=== PATIENT | female | born 1990 | race Caucasian/White ===

== ENCOUNTER 2020-08-24 16:45 | Emergency (ER) | payer OTHER ==
[2020-08-24 16:49] VITALS: BP 145/83; PULSE 103; RESP 20; TEMP 98.5
[2020-08-24] MEDS ORDERED: DIPH,PERTUS(ACELL)TETVAC-LF 0.5 ML VIAL IM ONE (16:51)
[2020-08-24] MEDS ORDERED: LIDOCAINE 1% INJ 10MG/ML (20 ML MDV) SQ ONE (16:53)
--- NOTE | 2020-08-24 17:23 | XR ---
EXAMINATION TYPE: XR hand limited RT DATE OF EXAM: 08/24/2020 COMPARISON: NONE HISTORY: Laceration TECHNIQUE: 2 views FINDINGS: I see no fracture nor dislocation. Joint spaces are normal. There are no pathologic calcifi cations. There is no sign of a foreign body. There is minimal soft tissue deformity at the skin surfa ce lateral to the second metacarpal head. IMPRESSION: Small laceration deformity. No foreign body. No fracture.
--- NOTE | 2020-08-24 17:57 | ED ---
Wound/Laceration HPI - General Chief Complaint: Wound/Laceration Stated Complaint: R hand Injury Time Seen by Provider: 08/24/20 16:51 Source: patient Mode of arrival: ambulatory Limitations: no limitations - History of Present Illness Initial Comments: 29yo female presenting for right hand laceration. Patient states she cut between her thumb and index finger in the webspace when she was using a knife to cut something in the kitchen. Patient denies any other areas of injury she states bleeding is controlled she is unsure of her last tetanus. Patient denies any decreased range of motion or sensation deficits of the thumb index finger or any other remaining digits of the right hand. Patient appears well nontoxic in acute distress on arrival denies - Related Data Home Medications Medication Instructions Recorded Confirmed Acetaminophen Tab [Tylenol Tab] 1,000 mg PO Q6HR PRN 08/24/20 08/24/20 Allergies Allergy/AdvReac Type Severity Reaction Status Date / Time No Known Allergies Allergy Verified 08/24/20 18:06 Review of Systems ROS Statement: Those systems with pertinent positive or pertinent negative responses have been documented in the HPI. ROS Other: All systems not noted in ROS Statement are negative. Past Medical History Past Medical History: No Reported History History of Any Multi-Drug Resistant Organisms: None Reported Past Surgical History: No Surgical Hx Reported Past Psychological History: Anxiety Smoking Status: Never smoker Past Alcohol Use History: None Reported Past Drug Use History: None Reported General Exam - General Exam Comments Initial Comments: General: The patient is awake and alert, in no distress Eye: +3 mm pupils are equal, round and reactive to light, extra-ocular movements are intact. No nystagmus. There is normal conjunctiva bilaterally. No signs of icterus. Ears, nose, mouth and throat: There are moist mucous membranes and no oral lesions. Musculoskeletal: Normal ROM, no tenderness. Strength 5/5 at the MCP DIP and PIP joints (IP respectively) of all 5 digits of the right hand. Sensation intact. Radial pulses equal bilaterally 2+. Capillary refill< 3 seconds. Neurological: A&O x 3. CN II-XII intact grossly, There are no obvious motor or sensory deficits. Coordination appears grossly intact. Speech is normal. Skin: Skin is warm and dry and no rashes. 2cm laceration in web space between 1 & second digit, no identified foreign body of her exposure of underlying structure. Psychiatric: Cooperative, appropriate mood & affect, normal judgment. Limitations: no limitations Course Vital Signs 08/24/20 16:47 Temperature 98.5 F Pulse Rate 103 H Respiratory 20 Rate Blood Pressure 145/83 O2 Sat by Pulse 99 Oximetry Procedures - Laceration Laceration #1 Consent Obtained: verbal consent Indication: laceration Site: hand Size (cm): 2 Description: linear Depth: simple, single layer Anesthetic Used: lidocaine 1% Anesthesia Technique: local infiltration Amount (mls): 1 Pre-repair: wound explored, irrigated extensively, deep structures intact Type of Sutures: nylon Size of Sutures: 5-0 Number of Sutures: 5 Technique: simple, interrupted Patient Tolerated Procedure: well, no complications Medical Decision Making - Medical Decision Making 29yo female presenting for cc of right hand laceration. Neurovascularly intact evidence of tendon injury on physical examination or x-ray. laceration repaired after irrigation/cleansing. xr (-). tdap updated. pt tolerated proedure well discussed with laceration care/suture care and return parameters. Attending Dr. Rausch Disposition Clinical Impression: Laceration of right hand Disposition: HOME SELF-CARE Condition: Good Instructions (If sedation given, give patient instructions): Care For Your Stitches (ED), Laceration (ED) Additional Instructions: Please use medication as discussed. Please follow-up for suture removal in 7-10 days. Please return to emergency room if the symptoms increase or worsen or for any other concerns. Is patient prescribed a controlled substance at d/c from ED?: No Referrals: Reji Moser DO [Primary Care Provider] - 1-2 days Time of Disposition: 17:57
== END 2020-08-24 18:05 | disposition home or self-care (01) ==
LOC: EC 16:45
DX: S61.411A Laceration without foreign body of right hand, initial encounter (principal); Z23 Encounter for immunization; W26.0XXA Contact with knife, initial encounter; Y93.89 Activity, other specified; Y92.000 Kitchen of unspecified non-institutional (private) residence as the place of occurrence of the external cause
CPT/HCPCS: 73120; 90471; 99283; 12001; 90715; J2001

== ENCOUNTER 2021-12-21 06:25 | Day surgery (SDC) | payer OTHER ==
[2021-12-17 14:04] VITALS: BMI 30.7
[~2021-12-21 06:25] MED LIST: LACTATED RINGERS 1,000 ML IV SCH; LIDOCAINE 1% (10MG/ML) FOR IV START INTRADERMA PRN
[2021-12-21 06:55] VITALS: RESP 16; TEMP 98.7
[2021-12-21] MEDS ORDERED: PROPOFOL 10 MG/ML 20 ML VIAL IV ONE (07:27)
[2021-12-21] MEDS ORDERED: MIDAZOLAM 2 MG/2 ML VIAL ONE (07:27)
[2021-12-21] MEDS ORDERED: fentaNYL (PF) 50 MCG/ML 2 ML AMP ONE (07:27)
[2021-12-21] MEDS ORDERED: LIDOCAINE 2% INJ 20 MG/ML (2 ML VIAL) ONE (07:27)
--- NOTE | 2021-12-21 07:52 | P.PCN ---
Date of Procedure: 12/21/21 Procedure(s) Performed: Brief history: Patient is a pleasant 31-year-old white female scheduled for an elective upper endoscopy as well as colonoscopy as a part of evaluation of abdominal pain/intermittent rectal bleeding and positive serology for celiac disease. Procedure performed: Esophagogastroduodenoscopy with biopsy Colonoscopy Preoperative diagnosis: [place] pain/positive serology for celiac disease Intermittent rectal bleeding Anesthesia: [facility] [place] Procedure: After informed consent was obtained from the patient was brought into the endoscopy unit and IV sedation was administered by anesthesia under continuous monitoring. Initially upper endoscopy was done. The Olympus GF 160 video endoscope was inserted inserted into the mouth and esophagus intubated without any difficulty and was gradually advanced into the stomach and duodenum and carefully examined. The bulb and second part of the duodenum appeared normal. Antral biopsies were done from the duodenum to rule out celiac disease. The scope was then withdrawn into the stomach adequately insufflated with air and upon careful examination the antrum had mild gastritis and biopsies were done from this area. The body, cardia and fundus appeared normal. The scope was then withdrawn into the esophagus. The GE junction was located at 40 cm to the incisors. It appeared regular with no erythema erosions or ulcerations. Rest of the esophagus appeared normal. Patient tolerated the procedure well. At this time the patient continued to remain sedation. Initial digital rectal examination was normal. Olympus CF 160 video colonoscope was then inserted into the rectum and gradually advanced to the cecum without any difficulty. Careful examination was performed as the scope was gradually being withdrawn. The prep was excellent. The cecum, ascending colon, transverse colon, descending colon, sigmoid colon and rectum appeared normal. Retroflexion was performed in the rectum and monitor hemorrhoids were noted. Patient tolerated the procedure well. Impression: 1. Upper Endoscopy revealed mild antral gastritis and normal-appearing duodenum status post multiple biopsies to rule out celiac 2. Colonoscopy revealed small internal hemorrhoids but no evidence of colitis or colorectal neoplasia Recommendations: Findings of this examination were discussed with the patient as well as her family. She was advised to follow with the biopsy results. In the meantime advised to be a high-fiber diet and fiber supplements a regular basis.
[2021-12-21 08:15] VITALS: BP 124/89; PULSE 74
== END 2021-12-21 08:30 | disposition home or self-care (01) ==
LOC: ORWHC2ENDO 06:25
PROVIDERS: ATTEND Internal Medicine Gastroenterology
DX: K90.0 Celiac disease (principal); K29.50 Unspecified chronic gastritis without bleeding; K64.8 Other hemorrhoids; J45.909 Unspecified asthma, uncomplicated; F41.9 Anxiety disorder, unspecified
CPT/HCPCS: 81025; 88305; 45378; 43239; J2250; J3010; J2704; J2001

== ENCOUNTER → 2023-06-22 | Outpatient (CLI) | payer OTHER ==
--- NOTE | 2023-06-22 14:19 | MM ---
Reason for Exam: Clinical finding. Baseline mammogram. Indicated Problems: Lump or thickening of the right side for 2 Week(s). Patient History: Menarche at age 11. First Full-Term at age 20. Maternal aunt had breast cancer. Last menstrual period: 06/03/2023 Prior Study Comparison: Patient's first Mammogram. Tissue Density: The breast tissue is heterogeneously dense. This may lower the sensitivity of mammography. Findings: Analyzed By CAD. No evidence for mass or distortion. No suspicious calcifications seen. Clinical correlation. Ultrasound right breast. Overall Assessment: Incomplete: need additional imaging evaluation, BI-RAD 0 Management: Diagnostic Breast Ultrasound of the right breast. . Results were given to the patient verbally at the time of exam. Patient should continue monthly self-breast exams. A clinical breast exam by your physician is recommended on an annual basis. This exam should not preclude additional follow-up of suspicious palpable abnormalities. Note on Kat scores and lifetime risk: 1. A Kat score greater than 3% is considered moderate risk. If this is the case, consider specialist referral to assess eligibility for a risk reducing agent. 2. If overall lifetime risk for the development of breast cancer is 20% or higher, the patient may qualify for future screening with alternating mammogram and breast MRI. Electronically signed and approved by: Cristi Green M.D. Radiologis
--- NOTE | 2023-06-22 14:30 | USB ---
Reason for Exam: Clinical finding. Patient History: Menarche at age 11. First Full-Term at age 20. Maternal aunt had breast cancer. Technique: Method: Targeted. Findings: The upper outer quadrant of the right breast, the axilla of the right breast and the retroareolar of the right breast were scanned. Simple cyst noted right 9:00 position 2 cm from the nipple measuring 1.7 x 1.1 cm. No solid masses seen. Managed clinically. Overall Assessment: Benign, BI-RAD 2 Management: Screening Mammogram of both breasts at age 39. A clinical breast exam by your physician is recommended on an annual basis and results should be correlated with mammographic findings. This exam should not preclude additional follow-up of suspicious palpable abnormalities. Results were given to the patient verbally at the time of exam. Electronically signed and approved by: Cristi Green M.D. Radiologis
== END | disposition home or self-care (01) ==
LOC: RADMAMWWP 13:43
PROVIDERS: ATTEND Family Medicine
DX: R92.333 Mammographic heterogeneous density, bilateral breasts (principal); N63.10 Unspecified lump in the right breast, unspecified quadrant; Z80.3 Family history of malignant neoplasm of breast
CPT/HCPCS: 77062; 77066

== ENCOUNTER 2024-03-28 08:29 | Emergency (ER) | payer BC, OTHER ==
[2024-03-28 08:34] VITALS: TEMP 98.3
[2024-03-28] MEDS: KETOROLAC 15 MG/ML 1 ML VIAL IVP STA (09:32)
[2024-03-28] MEDS: LORazepam 1 MG TAB PO STA (09:32)
[2024-03-28] MEDS: SODIUM CHLORIDE 0.9% 1,000 ML IV STA (09:33)
[2024-03-28 09:34] LABS: Basophils % (A) 0 %; Eosinophils # (A) 0.1 k/uL (0-0.7); Eosinophils % (A) 2 %; HCT 41.6 % (34.0-46.0); HGB 14.2 gm/dL (11.4-16.0); Lymphocytes # (A) 1.3 k/uL (1.0-4.8); Lymphocytes % (A) 18 %; MCHC 34.1 g/dL (31.0-37.0); MCV 90.9 fL (80.0-100.0); Mean Platelet Volume 10.6; Monocytes # (A) 0.4 k/uL (0-1.0); Monocytes % (A) 6 %; Neutrophils # (A) 5.5 k/uL (1.3-7.7); Neutrophils % (A) 73 %; Platelet Count 182 k/uL (150-450); RBC 4.58 m/uL (3.80-5.40); RDW 12.6 % (11.5-15.5); WBC 7.5 k/uL (3.8-10.6)
[2024-03-28 09:50] LABS: INR 0.9 (<1.2); Partial Thromboplastin Time 26.8 sec (22.0-30.0); Prothrombin Time 9.9 sec (10.0-12.5)
--- NOTE | 2024-03-28 09:53 | XR ---
EXAMINATION TYPE: XR chest 2V DATE OF EXAM: 03/28/2024 COMPARISON: None INDICATION: Chest pain TECHNIQUE: Frontal and lateral views of the chest are obtained. FINDINGS: The heart size is normal. The pulmonary vasculature is normal. The lungs are clear. IMPRESSION: 1. No acute pulmonary process. [facility] Friedman, , 03/28/2024 9:51 AM
[2024-03-28 09:59] LABS: NT-Pro-B-Type Natriuretic Pept <20 pg/mL
--- NOTE | 2024-03-28 10:07 | ED ---
General Adult HPI - General Chief complaint: Chest Pain Stated complaint: chest pain,htn Time Seen by Provider: 03/28/24 08:40 Source: patient, RN notes reviewed, old records reviewed Mode of arrival: ambulatory Limitations: no limitations - History of Present Illness Initial comments: Patient is a 33-year-old female presents emergency department complaining of chest tightness and pain. Has also noticed elevated blood pressure. Remote history of asthma. Is also feeling anxious. Has been under more stress lately due to family issues. No history of early cardiac disease in herself or family members. No focal tenderness. No nausea, vomiting, diaphoresis. No radiation of the discomfort. No coughing. Occasionally shortness of breath. No lower extremity edema. No recent long distance travel. No history of blood clots. Presents for further evaluation at this time. Symptoms have been ongoing for 3 days. - Related Data Previous Rx's Medication Instructions Recorded LORazepam [Ativan] 0.5 mg PO DAILY PRN 3 Days #3 tab 03/28/24 Allergies Allergy/AdvReac Type Severity Reaction Status Date / Time cat dander Allergy Dyspnea Verified 03/28/24 10:17 dog dander Allergy Dyspnea Verified 03/28/24 10:17 pollen extracts Allergy Dyspnea Verified 03/28/24 10:17 tree and shrub pollen Allergy Dyspnea Verified 03/28/24 10:17 dust Allergy Dyspnea Uncoded 03/28/24 10:17 Review of Systems ROS Statement: Those systems with pertinent positive or pertinent negative responses have been documented in the HPI. ROS Other: All systems not noted in ROS Statement are negative. Past Medical History Past Medical History: Asthma History of Any Multi-Drug Resistant Organisms: None Reported Past Surgical History: No Surgical Hx Reported Additional Past Anesthesia/Blood Transfusion Reaction / Comment(s): HAS NEVER HAD ANY TYPE OF ANESTH Past Psychological History: Anxiety Smoking Status: Never smoker Past Alcohol Use History: Occasional Past Drug Use History: None Reported General Exam - General Exam Comments Initial Comments: Review of Systems: CONST: Denies fever EYES: Denies blurry vision ENT: Denies nasal congestion C/V: Endorses chest pain/tightness RESP: Denies shortness of breath GI: Denies abdominal pain : Denies dysuria SKIN: Denies rash. MSK: Denies joint pain. NEURO: Denies headache Limitations: no limitations Course Vital Signs 03/28/24 03/28/24 03/28/24 08:31 09:37 12:36 Temperature 98.3 F Pulse Rate 96 82 Pulse Rate [ 99 Child And Adolescent Psychologist ] Respiratory 20 18 Rate Blood Pressure 158/101 130/85 O2 Sat by Pulse 98 98 Oximetry 03/28/24 13:47 Temperature Pulse Rate 78 Pulse Rate [ Child And Adolescent Psychologist ] Respiratory 18 Rate Blood Pressure 134/70 O2 Sat by Pulse 99 Oximetry Medical Decision Making - Medical Decision Making Was pt. sent in by a medical professional or institution (, PA, MAGICIAN HELPER, urgent care, hospital, or fdc...) When possible be specific @ -No Did you speak to anyone other than the patient for history (EMS, parent, family, police, friend...)? What history was obtained from this source @ -No Did you review nursing and triage notes (agree or disagree)? Why? @ -I reviewed and agree with nursing and triage notes Were old charts reviewed (outside hosp., previous admission, EMS record, old EKG, old radiological studies, urgent care reports/EKG's, fdc records)? Report findings @ -No old charts were reviewed Differential Diagnosis (chest pain, altered mental status, abdominal pain women, abdominal pain men, vaginal bleeding, weakness, fever, dyspnea, syncope, headache, dizziness, GI bleed, back pain, seizure, CVA, palpatations, mental health, musculoskeletal)? @ -Differential Chest Pain: Stable Angina, Unstable Angina, STEMI, NSTEMI Aortic Dissection, Pneumothorax, Musculoskeletal, Esophageal Spasm GERD, Cholecystitis, Pancreatitis, Zoster, this is not meant to be an all-inclusive list. EKG interpreted by me (3pts min.). @ -As above X-rays interpreted by me (1pt min.). @ -Chest x-ray reveals no obvious acute cardiopulmonary process. CT interpreted by me (1pt min.). @ -None done U/S interpreted by me (1pt. min.). @ -None done What testing was considered but not performed or refused? (CT, X-rays, U/S, labs)? Why? @ -None What meds were considered but not given or refused? Why? @ -None Did you discuss the management of the patient with other professionals (profsteven anaya i.e. , PA, MAGICIAN HELPER, lab, RT, psych nurse, social scientist, supervisor blasting, teacher, chief commercial officer, supervisor case loading)? Give summary @ -No Was smoking cessation discussed for >3mins.? @ -No Was critical care preformed (if so, how long)? @ -No Were there social determinants of health that impacted care today? How? (Homelessness, low income, unemployed, alcoholism, drug addiction, transportation, low edu. Level, literacy, decrease access to med. care, shelter, rehab)? @ -No Was there de-escalation of care discussed even if they declined (Discuss DNR or withdrawal of care, Hospice)? DNR status @ -No What co-morbidities impacted this encounter? (DM, HTN, Smoking, COPD, CAD, Cancer, CVA, ARF, Chemo, Hep., AIDS, mental health diagnosis, sleep apnea, morbid obesity)? @ -None Was patient admitted / discharged? Hospital course, mention meds given and route, prescriptions, significant lab abnormalities, going to OR and other pertinent info. @ -Patient presents with somewhat atypical chest discomfort. Vital signs within acceptable limits. Could be anxiety related. Patient will be given a dose of oral Ativan, IV Toradol, as well as IV fluids and we will obtain cardiopulmonary workup. Patient in agreement this plan. EKG shows no signs of acute ischemia. Chest x-ray unremarkable. Laboratory studies are remarkable for undetectable troponin, undetectable BNP, as well as D-dimer within normal limits. Discussed results with the patient. She is asymptomatic at this time. I did offer admission which she declined. She was in agreement with 3-hour troponin. Repeat EKG shows no signs of acute ischemia. 3-hour troponin remains undetectable. On reevaluation, patient remains asymptomatic. She would like to go home. We discussed he could be related to stress and anxiety. I believe is safer to be discharged at this time. Patient was in agreement this plan. I instructed the patient to follow up with their PCP in the next 1-3 days. I explained that the patient should return to the emergency department if they experience any worsening symptoms. Strict return precautions were discussed with the patient. The patient expressed understanding of these instructions. I answered all questions that the patient had. The patient was discharged home in good condition with their prescriptions and follow up information. Undiagnosed new problem with uncertain prognosis? @ -No Drug Therapy requiring intensive monitoring for toxicity (Heparin, Nitro, Insulin, Cardizem)? @ -No Were any procedures done? @ -No Diagnosis/symptom? @ -Atypical chest pain, anxiety Acute, or Chronic, or Acute on Chronic? @ -Acute Uncomplicated (without systemic symptoms) or Complicated (systemic symptoms)? @ -Uncomplicated Side effects of treatment? @ -None Exacerbation, Progression, or Severe Exacerbation] @ -No Poses a threat to life or bodily function? @ -Unlikely - Lab Data Result diagrams: 03/28/24 09:03/28/24: Lab Results 03/28/24 03/28/24 03/28/24 Range/Units :06 04:06 04: WBC 7.5 (3.8-10.6) k/uL RBC 4.58 (3.80-5.40) m/uL Hgb 14.2 (11.4-16.0) gm/dL Hct 41.6 (34.0-46.0) % MCV 90.9 (80.0-100.0) fL MCH 31.0 (25.0-35.0) pg MCHC 34.1 (31.0-37.0) g/dL RDW 12.6 (11.5-15.5) % Plt Count 182 (150-450) k/uL MPV 10.6 Neutrophils % 73 % Lymphocytes % 18 % Monocytes % 6 % Eosinophils % 2 % Basophils % 0 % Neutrophils # 5.5 (1.3-7.7) k/uL Lymphocytes # 1.3 (1.0-4.8) k/uL Monocytes # 0.4 (0-1.0) k/uL Eosinophils # 0.1 (0-0.7) k/uL Basophils # 0.0 (0-0.2) k/uL PT 9.9 L (10.0-12.5) sec INR 0.9 (<1.2) APTT 26.8 (22.0-30.0) sec D-Dimer 0.41 (<0.60) mg/L FEU Sodium (137-145) mmol/L Potassium (3.5-5.1) mmol/L Chloride (98-107) mmol/L Carbon Dioxide (22-30) mmol/L Anion Gap mmol/L BUN (7-17) mg/dL Creatinine (0.52-1.04) mg/dL Est GFR (CKD-EPI)AfAm (>60 ml/min/1.73 sqM) Est GFR (CKD-EPI)NonAf (>60 ml/min/1.73 sqM) Glucose (74-99) mg/dL Calcium (8.4-10.2) mg/dL Magnesium (1.6-2.3) mg/dL Total Bilirubin (0.2-1.3) mg/dL AST (14-36) U/L ALT (4-34) U/L Alkaline Phosphatase (38-126) U/L Troponin I (0.000-0.034) ng/mL NT-Pro-B Natriuret Pep pg/mL Total Protein (6.3-8.2) g/dL Albumin (3.5-5.0) g/dL Urine Color Colorless Urine Appearance Clear (Clear) Urine pH 6.5 (5.0-8.0) Ur Specific [place] 1.008 (1.001-1.035) Urine Protein Negative (Negative) Urine Glucose (UA) Negative (Negative) Urine Ketones Negative (Negative) Urine Blood Negative (Negative) Urine Nitrite Negative (Negative) Urine Bilirubin Negative (Negative) Urine Urobilinogen <2.0 (<2.0) mg/dL Ur Leukocyte Esterase Negative (Negative) 03/28/24 03/28/24 03/28/24 Range/Units 09:28 09:28 12:23 WBC (3.8-10.6) k/uL RBC (3.80-5.40) m/uL Hgb (11.4-16.0) gm/dL Hct (34.0-46.0) % MCV (80.0-100.0) fL MCH (25.0-35.0) pg MCHC (31.0-37.0) g/dL RDW (11.5-15.5) % Plt Count (150-450) k/uL MPV Neutrophils % % Lymphocytes % % Monocytes % % Eosinophils % % Basophils % % Neutrophils # (1.3-7.7) k/uL Lymphocytes # (1.0-4.8) k/uL Monocytes # (0-1.0) k/uL Eosinophils # (0-0.7) k/uL Basophils # (0-0.2) k/uL PT (10.0-12.5) sec INR (<1.2) APTT (22.0-30.0) sec D-Dimer (<0.60) mg/L FEU Sodium 138 (137-145) mmol/L Potassium 4.8 (3.5-5.1) mmol/L Chloride 108 H (98-107) mmol/L Carbon Dioxide 20 L (22-30) mmol/L Anion Gap 10 mmol/L BUN 10 (7-17) mg/dL Creatinine 0.50 L (0.52-1.04) mg/dL Est GFR (CKD-EPI)AfAm >90 (>60 ml/min/1.73 sqM) Est GFR (CKD-EPI)NonAf >90 (>60 ml/min/1.73 sqM) Glucose 93 (74-99) mg/dL Calcium 9.1 (8.4-10.2) mg/dL Magnesium 2.0 (1.6-2.3) mg/dL Total Bilirubin 0.8 (0.2-1.3) mg/dL AST 32 (14-36) U/L ALT 18 (4-34) U/L Alkaline Phosphatase 52 (38-126) U/L Troponin I <0.012 <0.012 (0.000-0.034) ng/mL NT-Pro-B Natriuret Pep <20 pg/mL Total Protein 7.3 (6.3-8.2) g/dL Albumin 4.4 (3.5-5.0) g/dL Urine Color Urine Appearance (Clear) Urine pH (5.0-8.0) Ur Specific [place] (1.001-1.035) Urine Protein (Negative) Urine Glucose (UA) (Negative) Urine Ketones (Negative) Urine Blood (Negative) Urine Nitrite (Negative) Urine Bilirubin (Negative) Urine Urobilinogen (<2.0) mg/dL Ur Leukocyte Esterase (Negative) - EKG Data -: EKG Interpreted by Me EKG Comments: 12-lead Electrocardiogram Interpretation Note EKG was reviewed and interpreted by myself. 12-lead ECG performed at 0839 is interpreted by me as revealing normal sinus rhythm at a rate of 94 beats per minute. [place] is normal. Possible borderline left axis deviation. NM interval is 150 ms, QRS duration is 83 ms, QTc is 392 ms.. There were no ST or T wave abnormalities to suggest myocardial ischemia or injury. R wave progression across the precordium was satisfactory. By my interpretation this EKG is non- diagnostic for acute ischemia. 12-lead Electrocardiogram Interpretation Note EKG was reviewed and interpreted by myself. 12-lead ECG performed at 1044 is interpreted by me as revealing normal sinus rhythm at a rate of 75 beats per minute. [place] is normal. NM interval is 158 ms, QRS duration 74 ms, TC is 401 ms. Isolated T wave inversion in lead III.. There were no ST or T wave abnormalities to suggest myocardial ischemia or injury. R wave progression across the precordium was satisfactory. By my interpretation this EKG is non- diagnostic for acute ischemia. Disposition Clinical Impression: Atypical chest pain, Anxiety Disposition: HOME SELF-CARE Condition: Good Instructions (If sedation given, give patient instructions): Chest Pain (ED), Anxiety (ED) Prescriptions: LORazepam [Ativan] 0.5 mg PO DAILY PRN 3 Days #3 tab PRN Reason: Anxiety Is patient prescribed a controlled substance at d/c from ED?: Yes When asked, does pt state using other controlled substances?: No If prescribed controlled substance>3 days was MAPS reviewed?: Prescribed <3 Days Referrals: Reji Moser DO [Primary Care Provider] - 1-2 days Time of Disposition: 13:40
[2024-03-28 10:09] LABS: ALT 18 U/L (4-34); AST 32 U/L (14-36); African American GFR (CKD) >90 (>60 ml/min/1.73 sqM); Albumin 4.4 g/dL (3.5-5.0); Anion Gap 10 mmol/L; Blood Urea Nitrogen 10 mg/dL (7-17); Calcium 9.1 mg/dL (8.4-10.2); Carbon Dioxide 20 mmol/L (22-30); Chloride 108 mmol/L (98-107); Glucose 93 mg/dL (74-99); Non-African American GFR(CKD) >90 (>60 ml/min/1.73 sqM); Potassium 4.8 mmol/L (3.5-5.1); Sodium 138 mmol/L (137-145); Total Bilirubin 0.8 mg/dL (0.2-1.3); Total Protein 7.3 g/dL (6.3-8.2)
[2024-03-28 10:10] LABS: Alkaline Phosphatase 52 U/L (38-126)
[2024-03-28 12:37] VITALS: RESP 18
[2024-03-28 12:48] LABS: Appearance,Urine Clear (Clear); Bilirubin,Urine Negative (Negative); Blood,Urine Negative (Negative); Color,Urine Colorless; Glucose,Urine (UA) Negative (Negative); Ketones,Urine Negative (Negative); Leukocyte Esterase,Urine Negative (Negative); Nitrite,Urine Negative (Negative); PH, Urine 6.5 (5.0-8.0); Protein,Urine Negative (Negative); Specific Gravity,Urine 1.008 (1.001-1.035); Urobilinogen,Urine <2.0 mg/dL (<2.0)
[2024-03-28 13:48] VITALS: BP 134/70; PULSE 78
== END 2024-03-28 13:49 | disposition home or self-care (01) ==
LOC: EC 08:29
CPT/HCPCS: 36415; 71046; 80053; 81003; 83735; 83880; 84484; 85025; 85379; 85610; 85730; 93005; 96361; 96374; 99284

== ENCOUNTER 2025-01-10 02:33 | Outpatient (CLI) | payer BC ==
[2025-01-10 03:48] VITALS: BP 128/90; PULSE 88; RESP 16; TEMP 97.8
--- NOTE | 2025-02-28 09:43 | P.MSEPDOC ---
Presenting Problems - Arrival Data Date of Arrival on Unit: 01/10/25 Time of Arrival on Unit: 02:33 Mode of Transport: Ambulatory - Complaint OB-Reason for Admission/Chief Complaint: Vaginal Bleeding Medical History - Information : 2 Para: 1 Term: 1 : 0 Abortions: Spontaneous or Elective: 0 Number of Living Children: 1 - Gestational Age Gestational Age by CARTER (wks/days): 22 Weeks and 0 Days Review of Systems - Review of Systems Constitutional: No problems Breast: No problems ENT: No problems Cardiovascular: No problems Respiratory: No problems Gastrointestinal: No problems Genitourinary: No problems Musculoskeletal: No problems Neurological: No problems Skin: No problems Vital Signs - Temperature Temperature: 97.8 F Temperature Source: Temporal Artery Scan - Pulse Pulse Oximetery Pulse Rate: 88 Pulse Assessment Method: Pulse Oximetry - Respirations Respiratory Rate: 16 Oxygen Delivery Method: Room Air O2 Sat by Pulse Oximetry: 97 - Blood Pressure Right Arm Blood Pressure: 128/90 Blood Pressure Mean: 102 Blood Pressure Source: Automatic Cuff Physician Notification - Physician Notified Physician Notified Date: 01/10/25 Physician Notified Time: 02:47 Physician: Kasie Alvarez New Order Received: Yes - Notification Comment Comment: Dr. Alvarez called at home, notified of c/o spotting, hx partial placenta previa, GA, G/P, VSS, FHT 144-156 per doppler, no active bleeding on external exam or on speculum exam. Orders to monitor for 1 hour, have pt void at least once, and reassess fht, if no further bleeding pt may be d/c. Maternal Triage Index - Maternal Triage Index Presenting for scheduled procedure w/no complaint: No - Stat/Priority 1 Stat Priority 1: No - Urgent/Priority 2 Urgent Priority 2: No - Prompt/Priority 3 Prompt Priority 3: No - Non-Urgent/Priority 4 Non-Urgent Priority 4: Yes Criteria Met for Priority 4: vaginal spotting Disposition - Disposition OB Disposition: Discharge to home Discharge Date: 01/10/25 Discharge Time: 03:40 I agree with the RN Medical Screening Exam: Yes Case reviewed; plan agreed upon as documented in EMR&OBIX.: Yes Diagnosis: SPOTTING COMPLICATING , SECOND TRIMESTER
== END 2025-01-10 03:40 | disposition home or self-care (01) ==
LOC: FBPOP 02:33
PROVIDERS: ATTEND Obstetrics & Gynecology Obstetrics
DX: O46.92 Antepartum hemorrhage, unspecified, second trimester (principal); Z3A.22 22 weeks gestation of pregnancy; Z91.048 Other nonmedicinal substance allergy status; Z91.030 Bee allergy status
CPT/HCPCS: 99213